=== PATIENT | male | born 1990 | race Two or more races ===

== ENCOUNTER 2016-11-13 12:29 | Emergency (ER) | payer OTHER ==
[~2016-11-13] VITALS: Ht 170.2 cm; Wt 76.0 kg
[2016-11-13 12:33] VITALS: BP 148/77
== END 2016-11-13 13:38 | disposition left against medical advice (07) ==
LOC: ED 13:19
DX: R42 Dizziness and giddiness (principal); Z53.21 Procedure and treatment not carried out due to patient leaving prior to being seen by health care provider